=== PATIENT | male | born 1950 | race Caucasian/White ===

== ENCOUNTER 2023-05-01 09:11 | Outpatient (AMB) | payer MEDICARE, OTHER, SELFPAY ==
--- NOTE | 2023-05-01 09:12 | MHC.OFFVIS ---
Intake Vital Signs 05/01/23 09:16 Height 6 ft Weight 178 lb 2.136 oz BMI 24.2 BP 154/70 H Blood Pressure Location Rt brachial Position Sitting Pulse 89 Pulse Source Pulse Oximeter Temp 97.5 F Temp Source Skin Pulse Oximetry (%) 100 Intake Visit Reasons: Joint and muscle pain in leg Intake Note: New pt presents today for joint and muscle pain. Previously seen at [facility] left leg/thigh Marketing Automation Manager Required: No Accompanied by: Self / Same As Patient Allergies amoxicillin Adverse Reaction (Intermediate, Verified 05/01/23 09:20) Hives atropine [From ] Adverse Reaction (Verified 05/01/23 09:20) Rash hyoscyamine [From ] Adverse Reaction (Verified 05/01/23 09:20) Rash lisinopril Adverse Reaction (Verified 05/01/23 09:20) Cough phenobarbital [From ] Adverse Reaction (Verified 05/01/23 09:20) Rash scopolamine [From ] Adverse Reaction (Verified 05/01/23 09:20) Rash Medication List - Last Reconciled 05/01/23 by Cy Holguin MD amlodipine 10 mg PO DAILY atorvastatin 20 mg PO DAILY ergocalciferol (vitamin D2) 1,250 mcg PO QWEEK hydrochlorothiazide 12.5 mg PO QAM meloxicam 7.5 mg PO BID pramipexole 0.25 mg PO DAILY HPI HPI Comments History of Present Illness Details The patient presents for evaluation of multiple areas of pain. He has had problems for now for about 3 years with sensation of weakness in the legs. There is occasional pain and discomfort in the left thigh. There is also some weakness he believes in the left arm. Workup in the past has included 2 EMG/and CT studies and muscle biopsy. He was seen at neurology at [facility] couple of times. There was suspicion at one point of a myopathy or motor neuron disease. The muscle biopsy did not show any myositis. Nerve studies did suggest cervical and lumbar radiculopathy as the cause of the weakness and muscle atrophy seen on his MRI scan. In the last year symptoms been have been fairly stable. He does take meloxicam 7.5 b.i.d.. There is some pain in the knees when he walks up stairs. There is no knee swelling. [facility] Medical History (Updated 05/01/23 @ 14:02 by Cy Holguin MD) Chronic nasal congestion Coronary artery calcification seen on CAT scan Degenerative arthritis of lumbar spine Hepatic steatosis HTN (hypertension) Pes cavus of both feet Restless leg syndrome Surgical History (Updated 05/01/23 @ 09:27 by DRE Steward) Hx of tonsillectomy S/P colon resection Family History Mother Multiple sclerosis Sister Pneumonia Hypertension Diabetes mellitus Father CAD (coronary artery disease) Social History (Updated 05/01/23 @ 09:23 by DRE Steward) Household Members: None Alcohol intake: current Alcohol intake frequency: 0-2 drinks per day Alcohol type: wine Patient Tobacco Use Status: Former Tobacco user Current occupational status: retired Current occupation: School counselor Review of Systems Const Details: Negative for appetite change, weight change, fever, chills, malaise and fatigue Eyes Details: Negative for vision change, dry eyes,headaches and dizziness ENT Details: Negative for hearing change, tinnitus, oral ulcer, nose bleeds and oral dryness. Card Details: Negative chest pain, edema and syncope Resp Details: Intermittent productive cough, this has been chronic. He is set ever on chorea. He is on guaifenesin for that with some benefit. Negative for SOB and wheezing GI Details: Negative indigestion/heartburn, nausea, abdominal pain, bowel changes, diarrhea, constipation and bloody stool. Details: Negative for dysuria, hematuria, nocturia, decreased force/flow and genital discharge Skin/Breast Details: Negative for itching, rash, hives, Raynaud's symptoms, sun sensitivity, and skin cancer Neuro Details: He takes pramipexole for restless leg syndrome. Negative for epilepsy, palsy, stroke, changes in speech, tingling and weakness Psych Details: Negative for anxiety, depression and stress Endo Details: Negative for polyuria and polydypsia Cesario/Lymph Details: Negative for excessive bruising or bleeding. Physical Exam Vital Signs: Last Vital Signs Temp 97.5 F 05/01/23 09:16 Pulse 89 05/01/23 09:16 BP 154/70 H 05/01/23 09:16 Pulse Ox 100 05/01/23 09:16 BMI result Body Mass Index 24.2 APPEARANCE: Patient in no acute distress EYES no redness, pupils equal and reactive to light, eyelids normal ABD: Normal bowel sounds, no organomegaly, masses or tenderness. EXTREMITIES: No edema, no calf tenderness, normal peripheral pulses. NEURO: Oriented and alert x3. No focal weakness. Reflexes symmetric. Gait normal. SKIN: No inflammatory or neoplastic lesions. Normal color and turgor JOINT EXAM: Cervical Spine:.? Full range of motion with mild discomfort at the extremes. No tenderness. Thoracic Spine:.? No scoliosis.? No tenderness on palpation. Lumbar Spine:.? Alignment normal.? Lumbar pain at the extremes of flexion but no tenderness. Chest Wall:.? No tenderness, swelling, increased warmth or erythema. Hands: Left: Normal pain-free range of motion although there is flexion deformity at the 5th PIP. There is some thickening on the palmar side of the 5th MTP CP consistent with some early Dupuytren's contracture. No other areas of tenderness or swelling. ? Normal pain-free range of motion without tenderness, swelling, increased warmth or erythema. Able to make a full fist and has a good medical records coordinator strength. Wrists:.? Normal pain-free range of motion without tenderness, swelling, increased warmth or erythema. Elbows:. Normal pain-free range of motion without tenderness, swelling, increased warmth or erythema. Shoulders:.?? Full range of motion without pain. No tenderness, weakness, swelling, increased warmth or erythema. Hips:.? Full range of motion without pain. Hip bursa:.? No tenderness. Knees:.?? Normal pain-free range of motion with mild patellofemoral crepitus. There is some minimal medial compartment tenderness without effusion, soft tissue swelling, increased warmth or erythema.? Ankles:.? Normal pain-free range of motion without tenderness, swelling, increased warmth or erythema. Feet:.? Left: This with seems a bit smaller in terms of girth than the right foot. There is some mild 1st MTP bony enlargement without tenderness. No soft tissue swelling, redness or warmth. Right: Normal pain-free range of motion without tenderness, swelling, increased warmth or erythema. Tender points:? No tenderness to digital palpation at the occiput, trapezius, second rib, lateral epicondyle, knees, greater trochanter and gluteal area bilaterally. ? Results Reviewed Results Reviewed: [facility] Result Report Patient: Reinaldo Guerra Date of Service: 09/14/19 ? ? Patient Gender: Male Ordering Provider: Rajat Rothman : 1950 ? ? ? Final X-RAY KNEE 3 VIEW - W/O INJURY Exam Date: 09/14/2019 4:18 PM Ordering Diagnosis: Chronic pain of both knees ? History: Chronic bilateral knee pain. ? Bilateral knees, 3 views each: There is mild medial compartment narrowing bilaterally. There are no other degenerative changes. There are no effusions. Soft tissues are unremarkable. ? IMPRESSION IMPRESSION: Mild bilateral medial compartment degeneration. ? Reading Radiologist: Assessment & Plan Assessment & Plan (1) Cervical radiculopathy: Code(s): M54.12 - Radiculopathy, cervical region (2) Osteoarthritis of knees, bilateral: Code(s): M17.0 - Bilateral primary osteoarthritis of knee (3) Lumbar radiculopathy: Code(s): M54.16 - Radiculopathy, lumbar region Plan The patient had originally some subjective weakness. Extensive workup in the past did show evidence for cervical and lumbar radiculopathy on the left. Myopathy was not confirmed on muscle biopsy or EMG testing. Motor neuron disease was suspected at one point but nothing evolved over the 2 years between EMG studies. At this point he has some osteoarthritis in the knees that bothers him at times. I am not sure he needs to be on regular doses of meloxicam. We reviewed that NSAID's could potentially raise his blood pressure and expose him to potential problems with GI bleeding and renal disease. However he did have recent blood work in February showing normal CBC creatinine so I do not think it is causing him great problems. He will see if he can cut the dose of the meloxicam to 7.5 mg once a day for 2 weeks and then stop it. At that point he would be safer to use it as the occasional medication on a p.r.n. basis or switch to acetaminophen up to 1 g t.i.d. on a p.r.n. basis. At this point I do not think he needs follow-up for another year. Review of his history, review of his [facility] neurology notes and the exam today took 34 minutes. Medications: New guaifenesin 400 mg PO DAILY 60 tabs 4RF Coding Level of Care Code Est Pt Level 4 (35669) Diagnoses Cervical radiculopathy M54.12 Osteoarthritis of knees, bilateral M17.0 Lumbar radiculopathy M54.16
[2023-05-01 09:16] VITALS: BP 154/70; PULSE 89; TEMP 36.4; O2SAT 100; BMI 24.2
== END 2023-05-01 10:10 | disposition home or self-care (01) ==
PROVIDERS: PCP Physician Assistant Medical; Visit Provider Internal Medicine Rheumatology
DX: M54.12 Radiculopathy, cervical region (principal); M17.0 Bilateral primary osteoarthritis of knee; M54.16 Radiculopathy, lumbar region
CPT/HCPCS: 99214

== ENCOUNTER → 2023-05-01 09:11 | Outpatient (BNVA) | payer MEDICARE, OTHER, SELFPAY | PROVIDERS: Visit Provider Internal Medicine Rheumatology | DX: M17.0 Bilateral primary osteoarthritis of knee (principal); M54.12 Radiculopathy, cervical region; M54.16 Radiculopathy, lumbar region | CPT/HCPCS: 99212 ==